=== PATIENT | male | born 1985 | race African-American/Black ===

== ENCOUNTER → 2017-04-28 | Outpatient (CLI) | payer OTHER ==
--- NOTE | 2017-05-10 23:27 | ECWPNPC ---
PATIENT NAME: HEENA DAVIS : 1985 GENDER: MALE VISIT DATE: 04/28/2017 DISCHARGE DATE: 04/28/17 1315 VISIT LOCKED DATE TIME: PHYSICIAN: ANALILIA EAGLE RESOURCE: ANALILIA EAGLE REASON FOR APPOINTMENT 1. LOW BACK PAIN HISTORY OF PRESENT ILLNESS HISTORY OF PRESENT ILLNESS: PAIN THE PATIENT DESCRIBES THE PAIN... 31 YEAR OLD MALE PATIENT WITH HISTORY OF CHRONIC LOW BACK PAIN. PATIENT DESCRIBES THE PAIN ACHING, SHARP, STABBING, SORE, SHOOTING WITH THE PAIN COMING AND GOING WITH A CURRENT PAIN SCORE OF 7/10. PATIENT STATES HE HURT HIS BACK A FEW YEARS AGO IN BASIC TRAINING AND HAS BEEN USING IBUPROFEN FOR PAIN MANAGEMENT. CURRENTLY THE PATIENT STATES THE PAIN INCREASE AND RADIATES DOWN BOTH LEGS WHILE HE IS STANDING. PATIENT DENIES UNEXPLAINABLE WEIGHT LOSS, FEVER, CHILLS, NEW CHANGES ON HER URINARY OR BOWEL CONTROL. FALL RISK SCREENING: SCREENING :NO FALLS IN THE PAST YEAR CURRENT MEDICATIONS TAKING IBUPROFEN 800 MG TABLET 1 TABLET ORALLY THREE TIMES A DAY MEDICATION LIST REVIEWED AND RECONCILED WITH THE PATIENT PAST MEDICAL HISTORY BACK PAIN ALLERGIES SHELLFISH: ITCHING: ALLERGY SURGICAL HISTORY DENIES PAST SURGICAL HISTORY FAMILY HISTORY FATHER: ALIVE, UNKNOWN MOTHER: ALIVE 47 YRS 4 BROTHER(S) , 2 SISTER(S) - HEALTHY. SOCIAL HISTORY GENERAL: TOBACCO USE ARE YOU A:FORMER SMOKER ADDITIONAL FINDINGS: TOBACCO [id number] FOR PERSONAL REASONS HOW LONG HAS IT BEEN SINCE YOU LAST SMOKED?1-5 YEARS ARE YOU A:NONSMOKER RECREATIONAL DRUG USE PATIENT DENIES USE OF ANY ILLEGAL SUBSTANCE INCLUDING MARIJUANA OR COCAINE. PATIENT DENIES ABUSE OR MISSUSED OF ANY MEDICATION. DRUG USE?NO CAFFEINE CAFFEINE USE?YES HOW OFTEN AND HOW MUCH? 2 CUPS TEA /DAY LEARNING BARRIERS / SPECIAL NEEDS ABILITY TO UNDERSTAND VERBAL INSTRUCTIONS AVERAGE, ABILITY TO UNDERSTAND WRITTEN INSTRUCTIONS AVERAGE, KNOWLEDGE OF EDUCATIONAL NEEDS/TREATMENT PLAN AVERAGE, MANDAEN? NO, LEARNING PREFERENCE READING, ORIENTED TO PLAN OF CARE: PATIENT, TEACHING MATERIALS PRINTED HANDOUT, RESPONSE TO EDUCATION EXPLAINES ACCURATELY/VERBALIZES UNDERSTANDING, PAIN MANAGEMENT PATIENT, TEACHING MATERIALS PRINTED HANDOUT, RESPONSE TO EDUCATION EXPLAINS ACCURATELY/VERBALIZES UNDERSTANDING. PSYCHOLOGICAL HX TREATMENTNO PAIN CLINIC PFS, CLERGY, PUBLIC HEALTH REFERRALS CLERGY REFERRAL NEEDED?NO WAS THE PROVIDER NOTIFIED OF ANY PERTINENT INFO?NO PFS REFERRAL NEEDED?NO PUBLIC HEALTH REFERRAL NEEDED?NO PFS REFERRAL NEEDED?NO CLERGY REFERRAL NEEDED?NO PUBLIC HEALTH REFERRAL NEEDED?NO WAS THE PROVIDER NOTIFIED OF ANY PERTINENT INFO?NO PATIENT: DENIES USE OF ANY ILLEGAL SUBSTANCE INCLUDING MARIJUANA OR COCAINE, REPORTS BEING EMOTIONALLY STABLE, IS AWARE THAT THEY ARE RESPONSIBLE AND GUARDIAN OF THE PRESCRIBED MEDICATIONS, DENIES RECREATIONAL DRUG USE. ADVANCE DIRECTIVES HEALTH CARE PROXY?NO DECLINES INFORMATION AT THIS TIME POWER OF CHART CALCULATOR?NO HOSPITALIZATION/MAJOR DIAGNOSTIC PROCEDURE DENIES PAST HOSPITALIZATION REVIEW OF SYSTEMS CONSTITUTIONAL: ANY CHANGE IN YOUR MEDICAL CONDITION? NO . CHILLS NO . FEVER NO . INFECTION: DO YOU HAVE NEW INFECTIONS? NO . DO YOU HAVE HISTORY OF MRSA? NO . MUSCULOSKELETAL: ANY NEW PATTERNS OF PAIN OR NUMBNESS? NO . GASTROENTEROLOGY: ANY NEW CHANGE IN BOWEL CONTROL? NO . GENITOURINARY: ANY NEW CHANGE IN BLADDER CONTROL? NO . IS THERE A CHANCE YOU COULD BE ? NO . HEMATOLOGY/LYMPH: DO YOU TAKE ANY BLOOD THINNERS? (FOR EXAMPLE- COUMADIN, PLAVIX, AGGRENOX, PLATEL, PRADAXA, OR XARELTO) NO . WHEN WAS YOUR LAST DOSE? DATE: TIME: . NEUROLOGY: HAVE YOU FALLEN IN THE PAST 6 MONTHS? NO . ANY NEW EXTREMITY NUMBNESS OR WEAKNESS? NO . CARDIOLOGY: DO YOU HAVE A PACEMAKER OR DEFIBRILLATOR? NO . RESPIRATORY: HAVE YOU BEEN SICK IN THE PAST WEEK? NO . FEVER NO . FLU LIKE SYMPTOMS? NO . COUGH NO . INTEGUMENTARY: DO YOU HAVE ANY RASHES OR OPEN SORES? NO . ALLERGIC/IMMUNO: ARE YOU ALLERGIC TO SHELLFISH OR IV DYE? YES . ANY NEW ALLERGIES? NO . PSYCHIATRIC: DO YOU HAVE THOUGHTS OF HURTING YOURSELF OR SOMEONE ELSE? NO . ARE YOU ABUSED, NEGLECTED, OR IN AN UNSAFE ENVIRONMENT? NO . ENDOCRINOLOGY: ARE YOU DIABETIC? NO . OTHER: DO YOU NEED ANY PRESCRIPTIONS? YES . IF YES, PLEASE LIST: PREDNISONE, IBUPROFEN . ANY NEW PROBLEMS WITH YOUR MEDICATIONS? NO . WHEN DID YOU LAST EAT? ____ . WHEN DID YOU LAST DRINK? ____ . WHAT DID YOU LAST DRINK? ____ . NAME OF PERSON DRIVING YOU HOME? ____ . DO YOU HAVE ANY OTHER QUESTIONS OR CONCERNS NO . REVIEWED BY: PROVIDER: ANALILIA EAGLE MD . VITAL SIGNS WT 228 LBS, HT 70 IN, BMI 32.71 INDEX, BP 129/80 MM HG, HR 66 /MIN, RR 16 /MIN, TEMP 97.7 F, OXYGEN SAT % 95%, NA INITIALS SC 12:48, REVIEWED BY: RODRIGO. EXAMINATION : PATIENT IS ALERT O X 3 AND COOPERATIVE. PATIENT LIMPING FROM RIGHT LEG. RIGHT LEG WEAKER AT EXTENTION AND FLEXION THEN THE LEFT. PATIENT HAS TENDERNESS IN THE LOWER BACK AND PARASPINAL MUSCLE GROUP. MRI OF THE LUMBAR SPINE DONE ON 07/09/16 SHOWS MULTIPLE DISC BULGES AND HYPERTROPHY. 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 DAVIS' PAIN MANAGEMENT CASE. AT THIS TIME THE PATIENT WILL CONTINUE USING IBUPROFEN FOR PAIN MANAGEMENT. PATIENT IS AWARE OF THE POTENTIAL RISK OF USING THIS MEDICATION AND WAS ADVISED TO USE NEED WELL WITH FOOD. AFTER VIEWING THE PATIENT AND THE MRI I WOULD LIKE TO MOVE FORWARD WITH A LUMBAR FACET BLOCK. WE DISCUSSED THE RISKS, BENENFITS, AND ALTNERATIVES OF THE INJECTION AND THE PATIENT WOULD LIKE TO PROCEED AT THIS TIME. INSTRUCTIONS WERE GIVEN, QUESTIONS WERE ANSWERED, PATIENT REPORTS UNDERSTANDING AND AGREES WITH THE PLAN. I, WILLIE WALKER, DOCUMENTED THE ABOVE INFORMATION ACTING A SCRIBE FOR DR. EAGLE. I HAVE REVIEWED THE ABOVE DOCUMENT, WRITTEN BY WILLIE MORALES AND I VERIFY THAT IT IS ACCURATE. PROCEDURE CODES FA211 ESTABILISHED PATIENT [facility] FACILITY CHARGE [id number] DOC MEDS VERIFIED W/PT OR RE G8730 PAIN ASSESS POS TOOL F/U PLAN DOC DISPOSITION & COMMUNICATION FOLLOW UP LFBT AFTER APPROVAL ELECTRONICALLY SIGNED BY ANALILIA EAGLE MD ON 05/10/2017 AT 06:43 PM EDT DISCLAIMER : THIS IS A VISIT SUMMARY EXTRACTED FROM THE [employer] CHART. IT IS NOT A COPY OF THE [employer] PROGRESS NOTE. JONOD
== END ==
LOC: M PAIN 12:40
PROVIDERS: ATTEND Anesthesiology
DX: G89.29 Other chronic pain (principal); M47.816 Spondylosis without myelopathy or radiculopathy, lumbar region; M47.817 Spondylosis without myelopathy or radiculopathy, lumbosacral region; M51.16 Intervertebral disc disorders with radiculopathy, lumbar region; M51.17 Intervertebral disc disorders with radiculopathy, lumbosacral region; Z91.013 Allergy to seafood; Z79.1 Long term (current) use of non-steroidal anti-inflammatories (NSAID); Z87.891 Personal history of nicotine dependence

== ENCOUNTER → 2017-06-04 | Outpatient (CLI) | payer OTHER ==
[~2017-06-04] MED LIST: BUPIVACAINE HCL 0.25% 30 ML VIAL As Ordered ONE; ISOVUE-M 300 61% 15ML VIAL (Q9967) As Ordered ONE; LIDOCAINE 1% SDV INJ 30 ML VIAL As Ordered ONE; TRIAMCINOLONE ACETONIDE SUSP 40 MG/ML VIAL (J3301) As Ordered ONE; diazePAM 5 MG TAB As Ordered ONE; oxyCODONE 5MG TAB As Ordered ONE
--- NOTE | 2017-06-04 14:13 | REP ---
Partial lumbar spine series: Two views. History: Bilateral lumbar facet block for pain. 29 seconds of fluoroscopy time is reported. Findings: A sequence of two last image hold fluoroscopic spot radiographs of the lumbar spine document various needle positions and contrast injections associated with injection procedure. Signed by Shaun Leon MD 06/04/2017 05:15 P
--- NOTE | 2017-06-15 | ECWPNPC ---
PATIENT NAME: HEENA DAVIS : 1985 GENDER: MALE VISIT DATE: 06/04/2017 DISCHARGE DATE: 06/04/17 1205 VISIT LOCKED DATE TIME: PHYSICIAN: ANALILIA EAGLE RESOURCE: ANALILIA EAGLE REASON FOR APPOINTMENT 1. LUMBAR FACET HISTORY OF PRESENT ILLNESS HISTORY OF PRESENT ILLNESS: PAIN THE PATIENT DESCRIBES THE PAIN... FALL RISK SCREENING: SCREENING :NO FALLS IN THE PAST YEAR CURRENT MEDICATIONS TAKING IBUPROFEN 800 MG TABLET 1 TABLET ORALLY THREE TIMES A DAY, NOTES: 05-31-17 09 MEDICATION LIST REVIEWED AND RECONCILED WITH THE PATIENT PAST MEDICAL HISTORY BACK PAIN ALLERGIES SHELLFISH: ITCHING: ALLERGY REVIEW OF SYSTEMS REVIEWED BY: PROVIDER: . CONSTITUTIONAL: ANY CHANGE IN YOUR MEDICAL CONDITION? NO . CHILLS NO . FEVER NO . INFECTION: DO YOU HAVE NEW INFECTIONS? NO . DO YOU HAVE HISTORY OF MRSA? NO . MUSCULOSKELETAL: ANY NEW PATTERNS OF PAIN OR NUMBNESS? NO . GASTROENTEROLOGY: ANY NEW CHANGE IN BOWEL CONTROL? NO . GENITOURINARY: ANY NEW CHANGE IN BLADDER CONTROL? NO . IS THERE A CHANCE YOU COULD BE ? NO . HEMATOLOGY/LYMPH: DO YOU TAKE ANY BLOOD THINNERS? (FOR EXAMPLE- COUMADIN, PLAVIX, AGGRENOX, PLATEL, PRADAXA, OR XARELTO) NO . WHEN WAS YOUR LAST DOSE? DATE: TIME: . NEUROLOGY: HAVE YOU FALLEN IN THE PAST 6 MONTHS? NO . ANY NEW EXTREMITY NUMBNESS OR WEAKNESS? NO . CARDIOLOGY: DO YOU HAVE A PACEMAKER OR DEFIBRILLATOR? NO . RESPIRATORY: HAVE YOU BEEN SICK IN THE PAST WEEK? NO . FEVER NO . FLU LIKE SYMPTOMS? NO . COUGH NO . INTEGUMENTARY: DO YOU HAVE ANY RASHES OR OPEN SORES? NO . ALLERGIC/IMMUNO: ARE YOU ALLERGIC TO SHELLFISH OR IV DYE? YES CRAB AND SHRIMP . ANY NEW ALLERGIES? NO . PSYCHIATRIC: DO YOU HAVE THOUGHTS OF HURTING YOURSELF OR SOMEONE ELSE? NO . ARE YOU ABUSED, NEGLECTED, OR IN AN UNSAFE ENVIRONMENT? NO . ENDOCRINOLOGY: ARE YOU DIABETIC? NO . OTHER: DO YOU NEED ANY PRESCRIPTIONS? NO . IF YES, PLEASE LIST: ____ . ANY NEW PROBLEMS WITH YOUR MEDICATIONS? NO . WHEN DID YOU LAST EAT? ____5 AM THIS MORNING . WHEN DID YOU LAST DRINK? ____THIS MORNING 0830 . WHAT DID YOU LAST DRINK? WATER . NAME OF PERSON DRIVING YOU HOME? ____FRIEND, LALITA . DO YOU HAVE ANY OTHER QUESTIONS OR CONCERNS NO . VITAL SIGNS WT 225.0 LBS, HT 70 IN, BMI 32.28 INDEX, BP 131/81 MM HG, HR 66 /MIN, RR 16 /MIN, TEMP 97.6 F, OXYGEN SAT % 99%, NA INITIALS TL 0919, REVIEWED BY: KG. 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 I EVALUATE THE PATIENT AND REVIEWED THE CHART. I WENT OVER THE RISKS, ALTERNATIVES, AND BENEFITS ASSOCIATED WITH THIS PROCEDURE. THE PATIENT WOULD LIKE TO PROCEED AND GIVE CONSENT TO PERFORMED THE PROCEDURE. THE PATIENT DENIES UNEXPLAINABLE WEIGHT LOSS, FEVER, CHILLS, OR NEW CHANGES IN URINARY OR BOWEL CONTROL DESCRIPTION OF PROCEDURE THE PATIENT WAS BROUGHT TO THE PROCEDURE ROOM AND PLACED IN THE PRONE POSITION. THE LUMBOSACRAL AREA WAS CLEANED WITH CHLORAPREP SOLUTION AND DRAPED ASEPTICALLY. THE PROCEDURE WAS DONE UNDER STERILE CONDITIONS. I CHECKED LATERALITY AND THE LEVEL WHERE THE PROCEDURE WAS GOING TO BE PERFORMED WITH THE PATIENT AND THE SUPPORTING STAFF AT THE MOMENT OF THE TIME OUT IN THE PROCEDURE ROOM. UNDER FLUOROSCOPIC GUIDANCE, THE TARGET POINT WAS SELECTED AT THE RIGHT AND LEFT L4-L5 AND RIGHT AND LEFT L5-S1 FACET JOINT. TARGET POINT WAS SELECTED AFTER LATERAL ROTATION AND TILT OF THE MAGNIFIER OF THE C-ARM. LIDOCAINE 0.5% WAS USED TO NUMB THE SKIN AND THE SUBCUTANEOUS TISSUE BELOW IT. SPINAL NEEDLES, 22-GAUGE, WERE ADVANCED UNDER FLUOROSCOPIC GUIDANCE AND FOLLOWING PATIENT FEEDBACK UNTIL THE TARGETS WERE TOUCHED. THE POSITION OF THE NEEDLES WAS VERIFIED WITH AP AND LATERAL VIEWS. AFTER PROPER POSITION OF THE NEEDLES WAS ACHIEVED, ISOVUE-M DYE 30% 0.1 ML WAS INJECTED SHOWING ADEQUATE SPREAD OF THE DYE. THEN A SOLUTION OF 1.9 ML OF BUPIVACAINE 0.125% OF KENALOG 10 MG WAS INJECTED AT EACH SITE. THERE WAS NO EVIDENCE OF BLOOD, PARESTHESIA OR CEREBROSPINAL FLUID DURING THE PROCEDURE. THE PATIENT WAS SENT TO THE RECOVERY ROOM. THE PATIENT WAS MOVING THE EXTREMITIES AND DOING WELL. THERE WAS NO COMPLICATION DURING THE PROCEDURE. FLUOROSCOPY TIME WAS 29 SECONDS POST PROCEDURE NOTE THE PATIENT WILL BE SEEN IN A FOLLOW UP IN THE NEXT FEW WEEKS. INSTRUCTIONS WERE GIVEN, QUESTIONS WERE ANSWERED, AND THE PATIENT EXPRESSED UNDERSTANDING AND AGREES WITH THE PLAN. I, WILLIE WALKER, DOCUMENTED THE ABOVE INFORMATION ACTING A SCRIBE FOR DR. EAGLE. I HAVE REVIEWED THE ABOVE DOCUMENT, WRITTEN BY WILLIE WALKER SCRIBE AND I VERIFY THAT IT IS ACCURATE DIAGNOSTIC IMAGING [facility] FACET BLOCK (PAIN)[id number] PROCEDURE CODES 74760 INJ PARAVERT F JNT L/S 1 LEV 47283 INJ PARAVERT F JNT L/S 2 LEV 6045F RADXPS IN END [id number] PXD DISPOSITION & COMMUNICATION FOLLOW UP 3 WEEKS ELECTRONICALLY SIGNED BY ANALILIA EAGLE MD ON 06/14/2017 AT 10:27 PM EDT DISCLAIMER : THIS IS A VISIT SUMMARY EXTRACTED FROM THE [employer] CHART. IT IS NOT A COPY OF THE [employer] PROGRESS NOTE. MTDD
== END ==
LOC: M PAIN 09:00
PROVIDERS: ATTEND Anesthesiology
DX: G89.29 Other chronic pain (principal); M47.816 Spondylosis without myelopathy or radiculopathy, lumbar region; M47.817 Spondylosis without myelopathy or radiculopathy, lumbosacral region; Z91.013 Allergy to seafood; Z79.1 Long term (current) use of non-steroidal anti-inflammatories (NSAID)
CPT/HCPCS: 64493; 64494; J3301; Q9967

== ENCOUNTER 2017-07-04 02:09 | Emergency (ER) | payer OTHER ==
[~2017-07-04] VITALS: Ht 177.8 cm; Wt 100.0 kg
[2017-07-04 02:21] VITALS: BP 138/94
== END 2017-07-04 04:38 | disposition left against medical advice (07) ==
LOC: M ED 02:09
DX: R21 Rash and other nonspecific skin eruption (principal); Z53.29 Procedure and treatment not carried out because of patient's decision for other reasons